=== PATIENT | female | born 1940 | race Caucasian/White ===

== ENCOUNTER 2016-10-31 23:00 | Observation (INO) | payer MEDICARE, BC ==
[2016-10-31] MEDS ORDERED: NALOXONE 0.4 MG/ML 1 ML VIAL IV PRN (23:44)
[2016-10-31] MEDS ORDERED: ONDANSETRON 4 MG/2 ML VIAL IVP PRN (23:44)
[2016-10-31] MEDS ORDERED: MORPHINE SULFATE 4 MG/ML SYRINGE IV PRN (23:44)
[2016-10-31] MEDS ORDERED: ACETAMINOPHEN TAB 325 MG TAB PO PRN (23:44)
[2016-10-31] MEDS ORDERED: SODIUM CHLORIDE 0.9% 1,000 ML IV SCH (23:45)
--- NOTE | 2016-10-31 23:53 | ED ---
General Adult HPI - General Chief complaint: Chest Pain Stated complaint: Chest Pain Time Seen by Provider: 10/31/16 23:07 Source: patient, RN/MD, EMS, RN notes reviewed, old records reviewed Mode of arrival: EMS Limitations: no limitations - History of Present Illness Initial comments: 76-year-old female with no significant past medical history presents with a two- week history of chest pain. Patient was transferred from [facility] for cardiology evaluation. She was seen in the emergency department yesterday with anterior chest tightness. This resolved and the patient left the emergency department. She presented today to [facility] with return of her chest pain. She also reports some left upper extremity paresthesias. She was recently diagnosed with TIA and started on Plavix approximately 2 weeks ago. Patient's chest pain is resolved at the time my evaluation. She did not have radiating pain. She denied of nausea. No diaphoresis. Pain was dull in nature, also described as tightness. She has no known cardiac or vascular disease. She is a nonsmoker. - Related Data Home Medications Medication Instructions Recorded Confirmed Cholecalciferol (Vitamin D3) 2,000 unit PO DAILY 10/31/16 10/31/16 [Vitamin D3] Clopidogrel [Plavix] 75 mg PO DAILY 10/31/16 10/31/16 Allergies Allergy/AdvReac Type Severity Reaction Status Date / Time No Known Allergies Allergy Verified 10/31/16 23:42 Review of Systems ROS Statement: Those systems with pertinent positive or pertinent negative responses have been documented in the HPI. ROS Other: All systems not noted in ROS Statement are negative. Past Medical History Past Medical History: CVA/TIA Additional Past Medical History / Comment(s): TIA 10/20/16 History of Any Multi-Drug Resistant Organisms: None Reported Past Surgical History: Cholecystectomy Past Psychological History: No Psychological Hx Reported Smoking Status: Never smoker Past Alcohol Use History: None Reported Past Drug Use History: None Reported General Exam Limitations: no limitations General appearance: alert, in no apparent distress Head exam: Present: atraumatic, normocephalic Eye exam: Present: normal appearance, PERRL ENT exam: Present: mucous membranes moist Neck exam: Present: normal inspection. Absent: tenderness Respiratory exam: Present: normal lung sounds bilaterally. Absent: respiratory distress, wheezes Cardiovascular Exam: Present: regular rate, normal rhythm GI/Abdominal exam: Present: soft. Absent: distended, tenderness Extremities exam: Present: normal inspection, normal capillary refill. Absent: pedal edema Back exam: Present: normal inspection, full ROM Neurological exam: Present: alert, oriented X3, CN II-XII intact. Absent: motor sensory deficit Psychiatric exam: Present: normal affect, normal mood Skin exam: Present: warm, dry, intact. Absent: cyanosis, diaphoretic Course Vital Signs 10/31/16 23:04 Temperature 98.3 F Pulse Rate 73 Respiratory 16 Rate Blood Pressure 130/74 O2 Sat by Pulse 97 Oximetry EKG Findings - EKG Comments: EKG Findings:: EKG shows normal sinus rhythm, left axis deviation, ventricular is 69, NM interval 164, QRS duration 80, QTC 426 no signs of ischemia or infarction Medical Decision Making - Medical Decision Making 76-year-old female presenting with 2 day history of anterior chest tightness and pain. Patient was transferred for cardiology evaluation from [facility]. She received aspirin prior to transfer. Chest x-ray was reviewed by me, negative for acute disease. Laboratory studies from [facility]. Blood cell count 6.7, hemoglobin 11.2) 74, magnesium 2.0 troponin was negative, BNP was 169, sodium 140, potassium 4.1, Creatinine 1.1. Patient received aspirin prior to transport. She is chest pain-free at this time EKG nonischemic Diagnosis: Chest pain Disposition Clinical Impression: Chest pain Disposition: ADMITTED IP TO THIS HOSP Condition: Stable Referrals: Nonstaff,Physician [Primary Care Provider] - 1-2 days Decision to Admit Reason: Admit from EC Decision Date: 10/31/16 Decision Time: 23:53
[2016-11-01 00:46] VITALS: BMI 22.3
[2016-11-01 01:22] LABS: Creatine Kinase 78 U/L (30-135)
[2016-11-01 01:36] LABS: Creatine Kinase MB 1.6 ng/mL (0.0-2.4); Troponin I <0.012 ng/mL (0.000-0.034)
[2016-11-01 06:46] LABS: Basophils % (A) 0 %; CH 28.2; CHCM 32.4; Eosinophils # (A) 0.2 k/uL (0-0.7); Eosinophils % (A) 5 %; HCT 36.8 % (34.0-46.0); HDW 2.45; HGB 11.7 gm/dL (11.4-16.0); Luc # (Auto) 0.18; Luc % (Auto) 4; Lymphocytes # (A) 1.1 k/uL (1.0-4.8); Lymphocytes % (A) 21 %; MCH 27.8 pg (25.0-35.0); MCHC 31.7 g/dL (31.0-37.0); MCV 87.7 fL (80.0-100.0); Mean Platelet Volume 8.6; Monocytes # (A) 0.4 k/uL (0-1.0); Monocytes % (A) 7 %; Neutrophils # (A) 3.3 k/uL (1.3-7.7); Neutrophils % (A) 64 %; RBC 4.19 m/uL (3.80-5.40); RDW 14.8 % (11.5-15.5); WBC 5.2 k/uL (3.8-10.6); WBC (Perox) 5.56
[2016-11-01 06:57] LABS: ALT 25 U/L (9-52); AST 19 U/L (14-36); Alkaline Phosphatase 35 U/L (38-126); Anion Gap 6 mmol/L; Blood Urea Nitrogen 18 mg/dL (7-17); Calcium 8.7 mg/dL (8.4-10.2); Carbon Dioxide 26 mmol/L (22-30); Chloride 108 mmol/L (98-107); Glucose 102 mg/dL (74-99); Non-African American GFR(MDRD) 55 (>60 ml/min/1.73 sqM); Potassium 4.5 mmol/L (3.5-5.1); Sodium 140 mmol/L (137-145); Total Bilirubin 0.3 mg/dL (0.2-1.3); Total Protein 5.9 g/dL (6.3-8.2)
[2016-11-01 07:09] LABS: Creatine Kinase 57 U/L (30-135)
[2016-11-01 07:21] LABS: Creatine Kinase MB 1.6 ng/mL (0.0-2.4); Troponin I <0.012 ng/mL (0.000-0.034)
[2016-11-01 08:19] VITALS: RESP 15
--- NOTE | 2016-11-01 09:11 | P.CRDCN ---
History of Present Illness Consult date: 11/01/16 Chief complaint: Chest discomfort History of present illness: This is a pleasant 76-year-old female patient who sees Dr. Fonseca at [place] on regular basis with a past medical history significant for TIA presented to the hospital complaining of chest discomfort. The patient initially presented to the emergency room doctor for hospital with a chest discomfort. She was in her usual state of health until yesterday when she started experiencing discomfort in the mid of the chest as a sharp kind of discomfort with some tingling in the left arm. No associated symptoms of shortness of breath, sweating, dizziness or lightheadedness or syncope. The patient just was diagnosed with TIA about 2 weeks ago. The cardiac enzymes came in to be unremarkable. The EKG showed sinus rhythm with nonspecific changes in the inferior leads. I recommended proceeding with a stress test and I informed the patient that the Department is closed over the weekend. I recommended the patient to get up and around and if she continues to have a chest discomfort she needs to stay but if she is pain-free she can be discharged home and sees Dr. Fonseca as an outpatient for outpatient stress test. Past Medical History Past Medical History: CVA/TIA, Pneumonia Additional Past Medical History / Comment(s): TIA 10/20/16, pancreatitis. Carbon Monoxide poisoning History of Any Multi-Drug Resistant Organisms: None Reported Past Surgical History: Cholecystectomy Past Anesthesia/Blood Transfusion Reactions: No Reported Reaction Past Psychological History: No Psychological Hx Reported Smoking Status: Never smoker Past Alcohol Use History: None Reported Past Drug Use History: None Reported - Past Family History Mother Family Medical History: No Reported History Father Family Medical History: No Reported History Medications and Allergies Home Medications Medication Instructions Recorded Confirmed Type Cholecalciferol (Vitamin D3) 2,000 unit PO DAILY 10/31/16 11/01/16 History [Vitamin D3] Clopidogrel [Plavix] 75 mg PO DAILY 10/31/16 11/01/16 History Allergies Allergy/AdvReac Type Severity Reaction Status Date / Time No Known Allergies Allergy Verified 11/01/16 00:54 Physical Exam Vitals: Vital Signs Temp Pulse Pulse Resp BP BP Pulse Ox 11/01/16 08:00 97.9 F 66 15 119/73 94 L 11/01/16 05:01 97.4 F L 73 18 128/63 96 11/01/16 03:10 18 11/01/16 01:03 18 11/01/16 00:53 97.8 F 75 18 144/72 96 11/01/16 00:19 98.3 F 64 18 123/71 97 10/31/16 23:04 98.3 F 73 16 130/74 97 Intake and Output 10/31/16 11/01/16 11/01/16 22:59 06:59 14:59 Other: Voiding Method Toilet # Voids 1 Weight 57.1 kg - Constitutional General appearance: no acute distress - Respiratory Respiratory: bilateral: CTA - Cardiovascular Rhythm: regular Heart sounds: normal: S1, S2 Abnormal Heart Sounds: systolic murmur Results 11/01/16 06:09 11/01/16 06:09 Cardiac Enzymes 11/01/16 11/01/16 11/01/16 Range/Units 00:44 06:09 06:09 AST 19 (14-36) U/L CK-MB (CK-2) 1.6 1.6 (0.0-2.4) ng/mL Troponin I <0.012 <0.012 (0.000-0.034) ng/mL CBC 11/01/16 Range/Units 06:09 WBC 5.2 (3.8-10.6) k/uL RBC 4.19 (3.80-5.40) m/uL Hgb 11.7 (11.4-16.0) gm/dL Hct 36.8 (34.0-46.0) % Plt Count 180 (150-450) k/uL Comprehensive Metabolic Panel 11/01/16 Range/Units 06:09 Sodium 140 (137-145) mmol/L Potassium 4.5 (3.5-5.1) mmol/L Chloride 108 H (98-107) mmol/L Carbon Dioxide 26 (22-30) mmol/L BUN 18 H (7-17) mg/dL Creatinine 0.98 (0.52-1.04) mg/dL Glucose 102 H (74-99) mg/dL Calcium 8.7 (8.4-10.2) mg/dL AST 19 (14-36) U/L ALT 25 (9-52) U/L Alkaline Phosphatase 35 L (38-126) U/L Total Protein 5.9 L (6.3-8.2) g/dL Albumin 3.4 L (3.5-5.0) g/dL Current Medications Generic Name Dose Route Start Last Admin Trade Name Freq PRN Reason Stop Dose Admin Acetaminophen 650 mg 10/31/16 23:44 Tylenol Tab PO Q6HR PRN Mild Pain or Fever > 100.5 Sodium Chloride 1,000 mls @ 75 mls/hr 10/31/16 23:45 11/01/16 00:20 Saline 0.9% IV 75 mls/hr .[id number] EVELIA Administration Morphine Sulfate 4 mg 10/31/16 23:44 Morphine Sulfate (Inj) IV Q4HR PRN Severe Pain Naloxone HCl 0.2 mg 10/31/16 23:44 Narcan IV Q2M PRN Opioid Reversal Ondansetron HCl 4 mg 10/31/16 23:44 Zofran IVP Q8HR PRN Nausea And Vomiting Intake and Output 10/31/16 11/01/16 11/01/16 22:59 06:59 14:59 Other: Voiding Method Toilet # Voids 1 Weight 57.1 kg 11/01/16 06:09 11/01/16 06:09 Assessment and Plan Plan: This is a pleasant 76-year-old female patient who presented to the hospital was atypical chest discomfort and ruled out for acute coronary event. The patient need to have a stress test done. I recommended the patient to stay for additional 24 hours but she would like to be discharged home. We get the patient up and around and she is pain-free she can be discharged home and sees Dr. Fonseca as an outpatient.
[2016-11-01 12:03] VITALS: BP 131/66; PULSE 78; TEMP 97.6
[2016-11-01 13:18] LABS: Creatine Kinase 73 U/L (30-135)
[2016-11-01 13:31] LABS: Creatine Kinase MB 1.8 ng/mL (0.0-2.4); Troponin I <0.012 ng/mL (0.000-0.034)
--- NOTE | 2016-11-01 15:39 | P.HPIM ---
History of Present Illness Patient is a pleasant 70-year-old female was transferred from [facility] for evaluation by cardiology after she presented with chest pain sharp in nature midsternal area about 6 x 10 in severity appear to be musculoskeletal completely resolved at this point of time without any associated symptoms of shortness of breath diaphoresis dizziness or lightheadedness or syncopal episode. Patient chest pain is nonpruritic in nature not associated with food. Patient doesn't have any more chest pain here. Next Patient was aware of a cardiology rule out acute coronary syndromes patient will follow with the [facility] as an outpatient patient will get an outpatient stress test. Review of Systems REVIEW OF SYSTEMS: CONSTITUTIONAL: No fever, no malaise, no fatigue. HEENT: No recent visual problems or hearing problems. Denied any sore throat. CARDIOVASCULAR: No orthopnea, PND, no palpitations, no syncope. PULMONARY: No shortness of breath, no cough, no hemoptysis. GASTROINTESTINAL: No diarrhea, no nausea, no vomiting, no abdominal pain. Normoactive bowel sounds. NEUROLOGICAL: No headaches, no weakness, no numbness. HEMATOLOGICAL: Denies any bleeding or petechiae. GENITOURINARY: Denies any burning micturition, frequency, or urgency. MUSCULOSKELETAL/RHEUMATOLOGICAL: Denies any joint pain, swelling, or any muscle pain. ENDOCRINE: Denies any polyuria or polydipsia. The rest of the 14-point review of systems is negative. Past Medical History Past Medical History: CVA/TIA, Pneumonia Additional Past Medical History / Comment(s): TIA 10/20/16, pancreatitis. Carbon Monoxide poisoning History of Any Multi-Drug Resistant Organisms: None Reported Past Surgical History: Cholecystectomy Past Anesthesia/Blood Transfusion Reactions: No Reported Reaction Past Psychological History: No Psychological Hx Reported Smoking Status: Never smoker Past Alcohol Use History: None Reported Past Drug Use History: None Reported - Past Family History Mother Family Medical History: No Reported History Father Family Medical History: No Reported History Medications and Allergies Home Medications Medication Instructions Recorded Confirmed Type Cholecalciferol (Vitamin D3) 2,000 unit PO DAILY 10/31/16 11/01/16 History [Vitamin D3] Clopidogrel [Plavix] 75 mg PO DAILY 10/31/16 11/01/16 History Allergies Allergy/AdvReac Type Severity Reaction Status Date / Time No Known Allergies Allergy Verified 11/01/16 00:54 Physical Exam Vitals: Vital Signs Temp Pulse Pulse Resp BP BP Pulse Ox 11/01/16 12:00 97.6 F 78 15 131/66 97 11/01/16 08:00 97.9 F 66 15 119/73 94 L 11/01/16 05:01 97.4 F L 73 18 128/63 96 11/01/16 03:10 18 11/01/16 01:03 18 11/01/16 00:53 97.8 F 75 18 144/72 96 11/01/16 00:19 98.3 F 64 18 123/71 97 10/31/16 23:04 98.3 F 73 16 130/74 97 Intake and Output 11/01/16 11/01/16 11/01/16 06:59 14:59 22:59 Other: Voiding Method Toilet # Voids 1 Weight 57.1 kg PHYSICAL EXAMINATION: GENERAL: The patient is alert and oriented x3, not in any acute distress. Well developed, well nourished. HEENT: Pupils are round and equally reacting to light. EOMI. No scleral icterus. No conjunctival pallor. Normocephalic, atraumatic. No pharyngeal erythema. No thyromegaly. CARDIOVASCULAR: S1 and S2 present. No murmurs, rubs, or gallops. PULMONARY: Chest is clear to auscultation, no wheezing or crackles. ABDOMEN: Soft, nontender, nondistended, normoactive bowel sounds. No palpable organomegaly. MUSCULOSKELETAL: No joint swelling or deformity. EXTREMITIES: No cyanosis, clubbing, or pedal edema. NEUROLOGICAL: Gross neurological examination did not reveal any focal deficits. SKIN: No rashes. Results CBC & Chem 7: 11/01/16 06:09 11/01/16 06:09 Labs: Abnormal Lab Results - Last 24 Hours (Table) 11/01/16 Range/Units 06:09 Chloride 108 H (98-107) mmol/L BUN 18 H (7-17) mg/dL Glucose 102 H (74-99) mg/dL Alkaline Phosphatase 35 L (38-126) U/L Total Protein 5.9 L (6.3-8.2) g/dL Albumin 3.4 L (3.5-5.0) g/dL Thrombosis Risk Factor Assmnt - Choose All That Apply Each Risk Factor Represents 3 Points: Age 75 years or older Thrombosis Risk Factor Assessment Total Risk Factor Score: 3 Thrombosis Risk Factor Assessment Level: Moderate Risk Assessment and Plan Plan: #1 chest pain, rule out acute coronary syndromes, stresses as an outpatient mostly musculoskeletal chest pain. #2 history of CVA TIA in the past area: Patient is on Plavix for that
--- NOTE | 2016-11-01 15:39 | P.DS ---
Providers Date of admission: 10/31/16 23:44 Attending physician: Marnie Barnett Consults: 10/31/16 23:45 Consult Physician Urgent Consulting Provider: Carrington Chavarria Consult Reason/Comments: chest pain Do you want consulting provider notified?: Yes, Notify in am Primary care physician: Physician Nonstaff Hospital Course: Refer to my [facility] Patient Condition at Discharge: Stable Plan - Discharge Summary New Discharge Prescriptions: No Action Clopidogrel [Plavix] 75 mg PO DAILY Cholecalciferol (Vitamin D3) [Vitamin D3] 2,000 unit PO DAILY Discharge Medication List Cholecalciferol (Vitamin D3) [Vitamin D3] 2,000 unit PO DAILY 10/31/16 [History] Clopidogrel [Plavix] 75 mg PO DAILY 10/31/16 [History] Follow up Appointment(s)/Referral(s): Nonstaff,Physician [Primary Care Provider] - 1-2 days Joss Fonseca MD [STAFF PHYSICIAN] - 2 Weeks Patient Instructions/Handouts: Chest Pain (GEN) Discharge Disposition: Left Against Medical Advice
[2016-11-02] MEDS ORDERED: CLOPIDOGREL 75 MG TAB PO SCH (09:00)
== END 2016-11-01 15:04 | disposition left against medical advice (07) ==
LOC: EC 23:00 → 3OBS 23:44
PROVIDERS: ADMIT Hospitalist; ATTEND Hospitalist
DX: R07.89 Other chest pain (principal); R20.2 Paresthesia of skin; Z86.73 Personal history of transient ischemic attack (TIA), and cerebral infarction without residual deficits; Z79.02 Long term (current) use of antithrombotics/antiplatelets; Z87.01 Personal history of pneumonia (recurrent)
CPT/HCPCS: 99285 ×2; 96360; 96361; 93005; 80053; 82550; 82553; 83735; 84484; 85025; G0378 ×2